=== PATIENT | male | born 1965 | race Native Hawaiian/Other Pacific Islander ===

== ENCOUNTER 2025-06-15 13:56 | Outpatient (AMB) | payer OTHER, SELFPAY ==
[2025-06-15 14:32] VITALS: BMI 41.5
--- NOTE | 2025-06-15 14:32 | A.PHYSOV_ITS ---
Vital Signs 06/15/25 14:32 Height 5 ft 7 in Weight 265 lb BMI 41.5 Intake Visit Reasons: NPV [facility] Ref- lumbar spondylosis Intake Note: Patiewnt is a 59 year old male here for initial office visit. Patient has left thigh pain that travels down to knee. Form Setter Steel Pan Forms Required: No Allergies flu vaccine Allergy (Uncoded 06/15/25 14:34) body rash HPI Comments Details: History of Present Illness The patient is a 59 year old male presenting with left thigh pain. He reports the pain is localized to his left thigh, extending from the hip area downwards, and denies any associated back pain. The pain is described as feeling numb, hot, burning, and itchy, with significant pain on light touch (allodynia). The patient rates his pain as a 10/10 in severity and states it is present all day but is worse at night, which affects his sleep. Symptoms are exacerbated by standing in one position, which causes numbness and pain, prompting him to sit down for relief. Walking does not significantly worsen the pain. He has a history of a herniated disc, and a previous x-ray from May showed disc space narrowing. He currently takes Tylenol and ibuprofen for the pain but has not received other medications, physical therapy, or healthcare economics consultant. I reviewed the referring provider's no prior to consultation. Pain Description - Location: The pain is located in the left thigh, from the hip area down. - Quality: The pain is described as numb, hot, burning, and itchy, with occasional cold sensations. - Severity: The patient rates his current pain as 10/10. - Onset and Timing: The pain is present all day and is worse at night. - Exacerbating factors: Symptoms are worsened by standing in one spot and by light touch to the area. - Relieving factors: Sitting down helps to relieve the pain. - Interference with function: The pain interferes with his sleep. FOR[facility]LY [facility], [facility] Surgical History History of cardiac cath Social History Alcohol intake: current Patient Tobacco Use Status: Former Tobacco user Use of substances other than those prescribed or required for medical reasons: Yes Substance Use Type: Crack/Cocaine, Former Substance User and Opiates Review of Systems Narrative Review of Systems - Neurological: Reports left thigh pain with numbness, burning, itching, and alternating hot and cold sensations. - Musculoskeletal: Denies back pain, but reports hip pain when walking secondary to his thigh pain. - Constitutional: Denies leg weakness. Physical Exam Exam Exam: Physical Exam - Back: No tenderness to palpation over the lumbar spine. - Range of Motion: Lumbar flexion and extension do not provoke radicular symptoms. - Lower Extremities: Reports allodynia in the left thigh with significant pain on light touch. - Neurological: Sensation is altered over the left thigh, described as numb but itchy and sensitive. - Special Tests: Straight leg raise is negative bilaterally. - Motor: Strength is intact with ankle dorsiflexion/plantarflexion and hip flexion. Vital Signs: BMI result Body Mass Index 41.5 Assessment & Plan Assessment & Plan (1) Lumbar radiculopathy: Code(s): M54.16 - Radiculopathy, lumbar region Category: Medical (2) Spondylosis: Code(s): M47.9 - Spondylosis, unspecified Category: Medical Plan Pain Management - Affect: Pain is worse at night, disrupting sleep. - Analgesia: The patient is currently taking only Tylenol and ibuprofen. - Current Pain level: He rates his pain as 10/10. - Activities of Daily Living: Standing for a prolonged period causes increased numbness and pain, requiring him to sit down. - Aberrant Drug Related Behaviors: The patient shows no signs of aberrant behaviors and expressed a desire to avoid narcotic medications. Plan Patient was informed and verbally consented to the use of an ambient scribe for clinic note documentation during this visit. 1. Left Sciatica The patient's left thigh pain is suspected to be neuropathic, likely a radiculopathy originating from a pinched nerve in the lumbar spine, despite the absence of back pain. A previous x-ray showed disc space narrowing, but an MRI is required for a definitive diagnosis of nerve impingement. An MRI of the lumbar spine will be ordered, though it was explained that insurance may require a trial of conservative therapy first. To manage the neuropathic pain, a prescription for gabapentin will be sent to his pharmacy, starting at 100 mg at night, with instructions to titrate up to 200 mg or 300 mg as needed. An order for healthcare economics consultant for 4-6 weeks will be provided for conservative treatment. Discussion Notes I explained to the patient that I believe his left thigh pain is nerve pain originating from a pinched nerve in his back, even though he does not feel back pain. I informed him that an MRI of his back is needed for a clear diagnosis but that his insurance will likely require a trial of 4-6 weeks of conservative therapy, such as healthcare economics consultant, first. I offered to order the MRI due to his severe pain but advised it might not be approved immediately. We discussed starting gabapentin for his nerve pain, explaining that it is not a narcotic, can cause sleepiness, and should help with his pain, particularly at night. I will prescribe a low starting dose of 100 mg at night, which he can increase to two or three pills if needed. I will also provide him with an order for healthcare economics consultant and instructed him to call the office to report on the medication's effectiveness. Patient Instructions - Your left thigh pain is likely nerve pain coming from your back. - Take one gabapentin 100 mg pill at night for the pain. - If one pill is not enough, you can take up to two or three pills at night. - This medication is for nerve pain and may make you sleepy, so it is best to take it at night. - You will receive an order for healthcare economics consultant; please make an appointment with a chiropractor in your community. - An MRI of your back has been recommended, but your insurance may require you to complete several weeks of healthcare economics consultant first. - Please call our office to let us know if the gabapentin is helping your pain. Orders: Referrals Chiropractic Referral M47.9 - Spondylosis, unspecified, M54.16 - Radiculopathy, lumbar region Medications: New gabapentin 100 mg PO BEDTIME 30 caps 0RF 30 days M47.9 - Spondylosis, unspecified, M54.16 - Radiculopathy, lumbar region Coding Level of Care Code Tele New Pt Level 4 (30811) Diagnoses Lumbar radiculopathy M54.16 Spondylosis M47.9
--- OUTSIDE RECORDS SUMMARY | 2025-06-15 18:07 | XMS_ITS | Clinical Summary ---
Author Organization [facility] Prior to 11/28/[address] [place] [address] Care Team Providers Care Ball Maker Name Role Phone Nikkie Loredo DO Primary Care P rovider Allergies Active Allergy Reactions Criticality Noted Date Comments Influenza Vaccines 03/15/2014 Medications Medication Sig Dispensed Refills Start Date End Date Status acetaminophen (TYLENOL) 325 MG tablet Take 650 mg by mouth. 0 10/25/2016 Active hydrochlorothiazide (HYDRODIURIL) tablet 25 mg Take 25 mg by mouth. 0 12/17/2016 Active ibuprofen (ADVIL,MOTRIN) 800 MG tablet Take 800 mg by mouth. 0 11/06/2016 Active lisinopril (PRINIVIL,ZESTRIL) tablet 40 mg Take 40 mg by mouth. 0 12/17/2016 Active omeprazole (PRILOSEC) 20 MG capsule Take 20 mg by mouth. 0 12/17/2016 Active diclofenac (VOLTAREN) 50 MG EC tablet Take 50 mg by mouth 2 (two) times a day. 0 Active cetirizine (ZyrTEC) 10 MG tablet Take 10 mg by mouth daily. 0 Active fluticasone (FLOVENT HFA) 220 MCG/ACT inhaler Inhale 1 puff into the lungs 2 (two) times a day. 0 Active Triamcinolone Acetonide (NASACORT ALLERGY 24HR) 55 MCG/ACT AERO spray or apply 55 mcg inside Nose daily. 0 Active Active Problems Problem Noted Date Diagnosed Date Weight loss 10/11/2021 MGUS (monoclonal gammopathy of unknown significa nce) 09/19/2020 COVID-19 virus infection 09/19/2020 Acute meniscal tear of knee, left, subsequent en counter 08/08/2017 Arthritis of left knee 08/08/2017 Sciatica of left side 08/08/2017 Obstructive sleep apnea 02/25/2017 Overview: Overview: [facility] [place] Date 02/21/2017. SE 51 % SM 55 %. Without PAP: in REM for 4 % of this phase. RDI 94 (AHI 93), Central apneas 1; Obstructive apneas 124; Mixed apneas 3; hypopneas 49; RERAs 3; average oxygen saturation 91% (lowest 51%); PLMs 12. With PAP: in REM for 40 % of this phase. At the optimal pressure of 16 via CPAP; RDI 5.8 (AHI 5.8), Central apneas 2; Obstructive apneas 0; Mixed apneas 0; hypopneas 1; RERAs 0; and, average oxygen saturation was 88%; PLMs ~0. ON oximetry on CPAP. [facility] [place] [place] study. Date 12/13/2017. SE 80 % SM 91 %; spent 28 % of the study in REM. On CPAP @ 11; RDI 5.6 (AHI 5.4), Central apneas 6; Obstructive apneas 7; Mixed apneas 6; hypopneas 9; RERAs 1; and, average oxygen saturation was 92%. For the entire study, PLMs ~6. [facility] Polysomnogram treatment study. Date 06/01/2019. Wt 260#; BMI 40; SE 70 % SM 80 %; spent 24 % of the study in REM. On BiPAP @ /; RDI 2.5 (AHI 2.5), Central apneas 3; Obstructive apneas 0; Mixed apneas 0; hypopneas 1; RERAs 0; and, average oxygen saturation was 94%. For the entire study, PLMs ~1. Prestudy ESS 2; 0/4 RLS symptoms. Chronic pain of left knee 01/30/2017 HTN (hypertension) 09/28/2014 Obesity 09/28/2014 Family History Medical History Relation Name Comments Arthritis Father Heart disease Father Relation Name Status Comments Father Social History Tobacco Use Types Packs/Day Years Used Date Smoking Tobacco: Former Alcohol Use Standard Drinks/Week Comments No 0 (1 standard drink = 0.6 oz pur e alcohol) Sex and Gender Information Value Date Recorded Sex Assigned at Not on file Gender Identity Not on file Sexual Orientation Not on file Job Start Date Occupation Industry Not on file Not on file Not on file Last Filed Vital Signs Vital Sign Reading Time Taken Comments Blood Pressure 124/59 10/11/2021 1:03 PM EDT Pulse 66 10/11/2021 1:03 PM EDT Temperature 35.8 C (96.5 F) 10/11/2021 1:03 PM EDT Respiratory Rate - - Oxygen Saturation 97% 10/11/2021 1:03 PM EDT Inhaled Oxygen Concentration - - Weight 107 kg (236 lb) 10/11/2021 1:03 PM EDT Height 170.2 cm (5' 7 ) 03/21/2020 1:26 PM EDT Body Mass Index 36.96 03/21/2020 1:26 PM EDT Plan of Treatment Health Maintenance Due Date Last Done Comments Hepatitis B Vaccines (1 of 3 - 3-dose series) 1966 Hepatitis C Screening 1966 COVID-19 Vaccine (#1) 11/15/1971 Depression Screening 1978 Preventative Health Evaluation 1984 Shingrix-Zoster Vaccine (1 o f 2) 1985 Pneumococcal Vaccine (2 of 2 - PCV) 07/06/1997 07/06/1996 Colon Cancer Screening (Colonoscopy) 11/15/2011 Influenza Vaccine (#1) 2025 07/06/1996 DTap / Tdap / Td (2 - Td or Tdap) 08/21/2029 08/21/2019, 07/12/1995 RSV Ped < 20 months Aged Out No longe r eligible based on patient's age to complete this topic Care Teams Ball Maker Relationship Specialty Start Date End Date Nikkie Loredo DO PCP - General No Bake Molder 08/26/17
--- OUTSIDE RECORDS SUMMARY | 2025-06-15 18:07 | XMS_ITS | Encounter Summary ---
Author Organization [facility] Address [address] [place] [address] Care Team Providers Care Corncob Pipe Manufacturing Supervisor Name Role Phone Tracy De Leon MD Primary Care Provider [phone] Reason for Visit * Reason Onset Date Comments Results 06/14/2025 Encounter Details Date Type Department Care Team ([facility] st Contact Info) Description 06/14/2025 Telephone Adult Medicine [address] [phone] Tracy De Leon MD [address] [place] [address] Social History Tobacco Use Types Packs/Day Years Used Date Smoking Tobacco: Former Cigarettes 0 20 0 07/01/1984 - 07/01/2004 Smokeless Tobacco: Never Alcohol Use Standard Drinks/Week Comments Yes 0 (1 standard drink = 0.6 oz pur e alcohol) occasional Sex and Gender Information Value Date Recorded Sex Assigned at Not on file Legal Sex Male 12:51 PM EST Gender Identity Not on file Sexual Orientation Not on file documented as of this encounter Progress Notes * Clarice Fowler MA - 06/15/2025 10:06 AM EST Pt notified, will await referral * Clarice Fowler MA - 06/15/2025 10:04 AM EST Images from the original note were not included. X-ray shows worsening degenerative changes. I have placed a referral to physiatry for further evaluation and management. You will be contacted by that office to schedule appointment. Written by CHILANGO Keenan on 05/12/2025 4:55 PM EST * Hannah William - 06/14/2025 4:28 PM EST Inform patient: ANY URGENT OR ABNORMAL RESULTS WIILL RESULT IN A CALL BACK TO THE PATIENT CHAYO. Type of test: :Lumbar Spine Date test was performed: 05/12/2025 Where was the test performed: [facility] Who ordered this test?: Natalia Ellis Is the doctor here today?: yes Can the message wait until the doctor returns?: yes IF PATIENT'S PCP IS NOT IN INSTRUCT PATIENT THAT THEY WILL RECEIVE A CALL BACK WHEN THE PCP IS IN THE OFFICE NEXT. documented in this encounter Plan of Treatment Upcoming Encounters Date Type Department Care Team (Late st Contact Info) Description 11/02/2025 1:30 PM EDT Office Visit Bariatric Surgery - [place] [address] [facility] [address] [place] [phone] Chidi Blount MD [address] [place] [phone] documented as of this encounter Visit Diagnoses Not on filedocumented in this encounter Care Teams Corncob Pipe Manufacturing Supervisor Relationship Specialty Start Date End Date Tracy De Leon MD [address] [place] [phone] PCP - General Internal Medicine 07/06/24 documented as of this encounter
--- OUTSIDE RECORDS SUMMARY | 2025-06-15 18:07 | XMS_ITS | Encounter Summary ---
Author Organization [employer] Address [address] [place] [address] Care Team Providers Care Business Office Coordinator Name Role Phone Tracy De Leon MD Primary Care Provider [phone] Reason for Visit * Reason Onset Date Comments Med Refill 05/19/2025 Wegovy w/titrati on Encounter Details Date Type Department Care Team ([facility] st Contact Info) Description 05/19/2025 Telephone Bariatric Surgery - [place] [address] [facility] [address] [place] [address] Chidi Blount MD [address] [place] [phone] Social History Tobacco Use Types Packs/Day Years [...] on file documented as of this encounter Functional Status * Calculated C-SSRS Risk Score (Lifetime/Recent) Answer Date of Assessment Author No Risk Indicated 05/19/2025 12:35 PM EST Janae Osei RN * Burnett Suicide Severity Rating Scale (Screener/Recent Self-Report) Question Answer Date of Assessment Author 1. Wish to be (Past 1 Month) No 025 12:35 PM EST Janae Osei RN 2. Non-Specific Active Suici mu Thoughts (Past 1 Month) No 05/19/2025 12:35 PM EST Janae Osei RN 6. Suicidal Behavior (Lifetime) No 12:35 PM EST Janae Osei RN documented as of this encounter Progress Notes * Olga Brito - 05/19/2025 9:56 AM EST Patient did well on Wegovy 1 mgs and would like a refill with titration. If appropriate, please send script for Wegovy 1.7 mgs to their pharmacy. The patient does have a follow up in 11/02/2025 documented in this encounter Plan of Treatment Upcoming Encounters Date Type Department Care Team (Late st Contact Info) Description 11/02/2025 1:30 PM EDT Office Visit Bariatric Surgery - [address] [place] [address] Chidi Blount MD [address] [place] [phone] documented as of this encounter Visit Diagnoses Not on filedocumented in this encounter Care Teams Business Office Coordinator Relationship Specialty Start Date End Date Tracy De Leon MD [address] [place] [phone] PCP - General Internal Medicine 07/06/24 documented as of this encounter
--- OUTSIDE RECORDS SUMMARY | 2025-06-15 18:07 | XMS_ITS | Encounter Summary ---
Author Organization [facility] Address [address] [place] [address] Care Team Providers Care Microbiology Instructor Name Role Phone Tracy De Leon MD Primary Care Provider [phone] Reason for Visit * Reason Onset Date Comments Med Refill 06/14/2025 Wegovy Encounter Details Date Type Department Care Team (Late st Contact Info) Description 06/14/2025 Telephone Bariatric Surgery - [place] [address] [facility] [address] [place] [address] Chidi Blount MD [address] [place] [phone] Social History Tobacco Use Types Packs/Day Years [...] on file documented as of this encounter Ordered Prescriptions Prescription Sig Dispense Quantity Refills Last Filled Start Date End Date semaglutide (Wegovy) 2.4 mg/0.75 mL injection pen Inject 2.4 mg under the skin every 7 (seven) days for 28 days. 3 mL 06/14/2025 07/12/2025 documented in this encounter Progress Notes * Kathy Reardon - 06/14/2025 9:53 AM EST Patient did well on Wegovy 1.7 mgs and would like a refill with titration. If appropriate, please send script for Wegovy 2.4 mgs to their pharmacy. The patient does have a follow up in 11/02/2025 documented in this encounter Plan of Treatment Upcoming Encounters Date Type Department Care Team (Late st Contact Info) Description 11/02/2025 1:30 PM EDT Office Visit Bariatric Surgery - [address] [place] [phone] Chidi Blount MD [address] [place] [phone] documented as of this encounter Visit Diagnoses Not on filedocumented in this encounter Discontinued Medications Medication Sig Discontinue Reason Start Date End Da te semaglutide (Wegovy) 1.7 mg/0.75 mL injection pen Inject 1.7 mg under the skin every 7 (seven) days for 28 days. 05/19/2025 06/14/2025 documented as of this encounter Care Teams Microbiology Instructor Relationship Specialty Start Date End Date Tracy De Leon MD [address] [place] [phone] PCP - General Internal Medicine 07/06/24 documented as of this encounter
--- OUTSIDE RECORDS SUMMARY | 2025-06-15 18:07 | XMS_ITS | Patient Health Record ---
Author Organization [facility] [place] Address [address] [place] [phone] Care Team Providers Care Blowing Weasand Name Role Phone Nikkie Loredo Primary Care Provid er Unavailable Jacobo Sampson Unavailable [phone] Allergies Allergen (clinical drug ingredient) Drug/Non Drug Allergy documented on EMR Reaction Allergy Type Onset Date Status Vaccine product containing Influenza virus antigen (medicinal product) Influenza Vaccine (uncoded) rizwana Whitley Allergy Active Reason For Referral No Information Medications Medication SIG (Take, Route, Frequency, Duration) Notes Start Date End Date Status predniSONE 20 MG TOME FRANCISCO TABLETA POR V A ORAL CADA MA PADMINI WITH A MEAL Oral; Duration: 5 Active Nightsplint . . . AFO - L1930; Duration: . Active Albuterol Sulfate HFA 108 (90 Base) MCG/ACT TAKE 2 PUFFS BY MOUTH EVERY 6 HOURS NEEDED FOR WHEEZING Inhalation; Duration: 30 Active Amoxicillin 500 MG TAKE 1 TABLET BY BEKAH TH THREE TIMES A DAY Oral; Duration: 10 Active Lisinopril Active Social History Tobacco Use: Social History Observation Description Date Details (start date - stop date) Never Smoker NA - NA Tobacco Use/Smoking Question Answer Notes Are you a: nonsmoker Additional Findings: Tobacco Non-User Current no n-smoker Alcohol Screen Question Answer Notes Did you have a drink containing alcohol in the p ast year? Yes Points 0 Interpretation Negative Tobacco use other than smoking: Question Answer Notes Are you an other tobacco user? No Problems Problem Type SNOMED Code ICD Code Onset Dates Problem Status W/U Status Risk Notes Problem Plantar fascial fibromatosis (96975104) Plantar fascial fibromatosis (M72.2) Active confirmed Plan Of Treatment No Information Insurance Providers Payer Name Payer Address Payer Phone Subscriber Number Group Number Insured Name Patient Relationship to Insured Coverage Start Date Coverage End Date [facility] [employer] Claims [address] [place] [id number] Vishnu Singletary Self - patient is the insured Medical (General) History Medical History History ICD Code asthma Back pain Hypertension Surgical History Surgery Date(Month/Year) knee surgery-left 2018 Hospitalization History Reason Date(Month/Year) [facility] Left Heel Pain 07/2019
--- OUTSIDE RECORDS SUMMARY | 2025-06-15 18:07 | XMS_ITS | Clinical Summary ---
Author Organization [facility] [address] [place] [address] [place] [address] Phone Care Team Providers Care Mds Coordinator Name Role Phone Tracy De Leon MD Primary Care Provider [phone] Allergies Active Allergy Reactions Criticality Noted Date Comments Influenza Virus Vaccines 03/15/2014 Medications fluticasone HFA (FLOVENT HFA) 220 mcg/actuation inhaler INHALE 2 PUFFS BY MOUTH EVERY 12 HOURS (BULK) 12 g 11 05/22/20 24 Active Arnuity Ellipta 200 mcg/actuation blister with device inhaler INHALE 1 DOSE INTO THE LUNGS DAILY. RINSE MOUTH WITH WATER AND EXPECTORATE AFTER EACH DOSE TO PREVENT ORAL CANDIDIASIS OR FUNGAL INFECTION (BULK) 30 each 5 07/29/19 25 Active atorvastatin (LIPITOR) 40 mg tablet Take 1 tablet (40 mg total) by mouth at bedtime. Active furosemide (LASIX) 20 mg tabletIndicati ons:Stable angina pectoris (CMS/HCC V24),Coronary artery disease due to lipid rich plaque Take 1 tablet (20 mg total) by mouth 1 (one) time each day. 30 each 11 08/13/19 25 2025 Active aspirin 81 mg EC tablet TAKE 1 TABLET BY MOUTH EVERY DAY 90 tablet 3 09/30/19 25 Active fluticasone propion-salmet Farrah (Wixela Inhub) 500-50 mcg/dose diskus inhaler Inhale 1 puff by mouth 2 (two) times a day. Rinse mouth with water after use to reduce aftertaste and incidence of candidiasis. Do not swallow. 1 each 10/23/19 25 2025 Active isosorbide mononitrate (IMDUR) 30 mg 24 hr tablet TAKE 1 TABLET BY MOUTH EVERY DAY IN THE MORNING 90 tablet 3 12/24/19 25 Active cetirizine (ZyrTEC) 10 mg tablet TAKE ONE TABLET BY MOUTH EVERY DAY FOR ALLERGIES (VIAL) 30 tablet 5 01/29/20 25 Active docusate sodium (COLACE) 100 mg capsule TAKE ONE CAPSULE BY MOUTH EVERY DAY NEEDED FOR CONSTIPATION (VIAL) 30 capsule 5 01/29/20 25 Active isosorbide mononitrate (IMDUR) 60 mg 24 hr tablet TAKE 1 TABLET BY MOUTH EVERY MORNING. PT TO TAKE THIS EVERY MORNING ALONG WITH 30 MG TO = 90 MG 90 tablet 3 02/16/20 25 Active albuterol HFA (PROAIR HFA ; PROVENTIL HFA ; VENTOLIN HFA) 90 mcg/actuation inhaler INHALE 2 PUFFS BY MOUTH EVERY 4 HOURS NEEDED FOR COUGH OR WHEEZING (BULK) 8.5 g 5 03/03/20 25 Active omeprazole (PriLOSEC) [address] capsule TAKE 1 CAPSULE BY MOUTH EVERY DAY 90 capsule 1 03/16/20 25 Active albuterol 2.5 mg /3 mL (0.083 %) nebulizer solution INHALE 1 VIAL VIA NEBULIZER EVERY 6 HOURS NEEDED (BULK) 180 mL 3 03/31/20 25 Active lisinopril (PRINIVIL,ZEST RIL) 40 mg tablet TAKE ONE TABLET BY MOUTH EVERY DAY ^1R1 30 tablet 2 04/02/20 25 Active ondansetron (ZOFRAN) 4 mg tabletIndicati ons:Nausea Take 1 tablet (4 mg total) by mouth every 8 (eight) hours if needed for nausea or vomiting for up to 24 doses. 12 tablet 1 05/05/20 25 Active acetaminophen (TYLENOL) 500 mg tablet Take 1 tablet (500 mg total) by mouth every 8 (eight) hours if needed for mild pain. 30 tablet 05/12/20 25 Active metoprolol succinate (TOPROL-XL) 50 mg 24 hr tablet TAKE 1 TABLET BY MOUTH EVERY DAY 90 tablet 3 06/03/20 25 Active semaglutide (Wegovy) 2.4 mg/0.75 mL injection pen Inject 2.4 mg under the skin every 7 (seven) days for 28 days. 3 mL 06/14/20 25 2025 Active metoprolol succinate (TOPROL-XL) 50 mg 24 hr tablet TAKE 1 TABLET BY MOUTH EVERY DAY 90 tablet 3 06/30/20 24 2024 Discontinued semaglutide (Wegovy) 1 mg/0.5 mL injection pen INJECT 1 MG UNDER THE SKIN EVERY 7 (SEVEN) DAYS FOR 28 DAYS. 2 mL 1 04/28/20 25 2024 Discontinued(D ose adjustment) predniSONE (DELTASONE) 20 mg tablet Take 2 tablets (40 mg total) by mouth 1 (one) time each day for 5 days. 10 each 05/12/20 25 2024 semaglutide (Wegovy) 1.7 mg/0.75 mL injection pen Inject 1.7 mg under the skin every 7 (seven) days for 28 days. 3 mL 05/19/20 25 2024 Discontinued Active Problems Problem Noted Date Diagnosed Date Calculus of kidney 12/30/2024 Chronic back pain 12/30/2024 Cocaine dependence 12/30/2024 Depression 12/30/2024 Opioid abuse 12/30/2024 Overview (12/30/2024): did not come in for pill counts w suspicion for diversion Class 2 obesity 12/30/2024 Peripheral edema 08/13/2024 Assessment & Plan (08/13/2024 10:11 AM EST): Patient does have complaints of bilateral lower extremity edema as well as abdominal distention. As outlined above he has gained a significant amount of weight in short. Time. Subsequently, I am going to trial him on a low-dose of Lasix. I have sent this to his pharmacy of choice and of asked him to have a BMP drawn in 1 week to evaluate kidney function and electrolytes. I have also scheduled the patient for surveillance echocardiogram to further evaluate for any valvular abnormalities as well as reduction in LVEF in the setting of significant coronary disease. I have also informed the patient about the importance of performing a daily weight and to reach out to our office should he gain 2 pounds in 1 day or 5 pounds in 5 days accompanied by worsening peripheral edema, abdominal distention and shortness of breath. Prediabetes 04/23/2024 CAD (coronary artery disease) 06/19/2023 Overview (04/23/2024): Last Assessment & Plan: He denies any ongoing anginal symptoms.He will continue on cardioprotective medical therapy of rosuvastatin, isosorbide, aspirin, metoprolol and ticagrelor. He was instructed to call 911 or go to the emergency room should he weeks begin to experience chest pain or pressure lasting greater than 10 minutes that does not resolve with rest. Assessment & Plan (02/25/2025 10:21 AM EDT): Orders: ECG 12 lead Lipid panel with reflex to direct LDL; Future Hemoglobin A1c; Future Assessment & Plan (08/13/2024 10:11 AM EST): Status post cardiac catheterization with disease as outlined above. He was recommended to titrate antianginal medications to help with symptoms prior to patient being evaluated by cardiothoracic surgery as this would be the next step. Again the patient states that he is unable to tolerate amlodipine as this gave him chest pain. He had previously endorsed similar complaints while taking metoprolol. We had a discussion regarding the importance of these medications and that it was unlikely the medicine causing the chest discomfort and was actually his coronary disease. At this time, he was agreeable to continue with aspirin, statin, metoprolol and isosorbide. He does have a prescription for amlodipine which I have asked him not to do get rid of as if he does develop recurrence of chest discomfort this medication will be added as well. Instructed to call 911 or go to the emergency room should the patient begin to experience chest pain or pressure lasting greater than 10 minutes does not resolve with rest. Orders: furosemide (LASIX) 20 mg tablet; Take 1 tablet (20 mg total) by mouth 1 (one) time each day. Basic metabolic panel; Future Transthoracic echocardiogram (TTE) complete with PRN contrast, bubble, strain, and 3D order panel; Future Assessment & Plan (07/10/2024 3:42 PM EST): See careplan for chest pain Chest pain 11/05/2022 Assessment & Plan (07/10/2024 3:42 PM EST): Patient does endorse increase in chest discomfort as well as shortness of breath since his last office visit despite titration and antianginal therapy. Via shared decision making. We have agreed to repeat cardiac catheterization as it has been 1 year since his last cath as outlined above and the patient is having worsening symptoms. At this time he will continue on his current dose of isosorbide and metoprolol. Instructed to call 911 or go to the emergency room should the patient begin to experience chest pain or pressure lasting greater than 10 minutes does not resolve with rest. Risk of cardiac catheterization explained to the patient including risk for damage to access site resulting in pseudoaneurysm requiring vascular procedure, risk for bleeding, kidney injury, stroke, NH, ventricular arrhythmia, pericardial effusion and . The patient does understand these risks and agrees to proceed. Weight loss 10/11/2021 COVID-19 virus infection 09/19/2020 MGUS (monoclonal gammopathy of unknown significa nce) 09/19/2020 Fatty liver 07/26/2020 Overview (04/23/2024): Noted incidentally on CT of abdomen during admission at [facility] on 07/19/2020 COVID-19 virus infection 07/26/2020 Paraproteinemia 05/05/2019 Acute meniscal tear of knee, left, subsequent en counter 08/08/2017 Arthritis of left knee 08/08/2017 Sciatica of left side 08/08/2017 Dyslipidemia 03/08/2017 Overview (04/23/2024): Last Assessment & Plan: Patient continues to endorse perceived myalgias since being on statin therapy. At this time he will continue on his current dose of statin and be mindful of his dietary fat intake. Will update fasting lipid profile to further evaluate where his LDL is since being on statin therapy. We will consider PCSK9 inhibitor per the patient's request. Assessment & Plan (02/25/2025 10:52 AM EDT): Assessment & Plan (08/13/2024 10:11 AM EST): He will continue on her current dose of Lipitor and be more mindful of his dietary fat intake. Goal LDL less than 70 however ideally closer to 55 in the setting of significant coronary artery disease. Can consider updating fasting lipid profile prior to next in office visit unless already performed by his PCP. Assessment & Plan (07/10/2024 3:42 PM EST): Continue current statin therapy. Last LDL 60. This is at goal of <70. Known medical problems 02/25/2017 Obstructive sleep apnea 02/25/2017 Overview (04/23/2024): [facility] Split Night Polysomnogram Date 02/21/2017. SE 51 [...] 88%; PLMs ~0. ON oximetry on CPAP. [facility] Polysomnogram treatment study. Date 12/13/2017. SE 80 % SM 91 %; spent 28 % of the study in REM. On CPAP @ 11; RDI 5.6 (AHI 5.4), Central apneas 6; Obstructive apneas 7; Mixed apneas 6; hypopneas 9; RERAs 1; and, average oxygen saturation was 92%. For the entire study, PLMs ~6. [facility] Polysomnogram treatment study. Date 06/01/2019. Wt 260#; BMI 40; SE 70 % SM 80 %; spent 24 % of the study in REM. On BiPAP @ ; RDI 2.5 (AHI 2.5), Central apneas 3; Obstructive apneas 0; Mixed apneas 0; hypopneas 1; RERAs 0; and, average oxygen saturation was 94%. For the entire study, PLMs ~1. Prestudy ESS 2; 0/4 RLS symptoms. Obstructive sleep apnea 02/25/2017 Overview (12/30/2024): [facility] Split Night Polysomnogram Date 02/21/2017. SE 51 [...] 88%; PLMs ~0. ON oximetry on CPAP. [facility] Polysomnogram treatment study. Date 12/13/2017. SE 80 % SM 91 %; spent 28 % of the study in REM. On CPAP @ 11; RDI 5.6 (AHI 5.4), Central apneas 6; Obstructive apneas 7; Mixed apneas 6; hypopneas 9; RERAs 1; and, average oxygen saturation was 92%. For the entire study, PLMs ~6. [facility] Polysomnogram treatment study. Date 06/01/2019. Wt 260#; BMI 40; SE 70 % SM 80 %; spent 24 % of the study in REM. On BiPAP @ ; RDI 2.5 (AHI 2.5), Central apneas 3; Obstructive apneas 0; Mixed apneas 0; hypopneas 1; RERAs 0; and, average oxygen saturation was 94%. For the entire study, PLMs ~1. Prestudy ESS 2; 0/4 RLS symptoms. Chronic pain of left knee 01/30/2017 Asthma 10/13/2015 Plantar fasciitis, right 10/03/2015 HTN (hypertension) 09/28/2014 Overview (04/23/2024): Last Assessment & Plan: Well-controlled during today's exam with a reading of 118/72. I have made no changes to his medications. Educated on the importance of diet lifestyle to help further assist in reducing blood pressure. The patient was encouraged to follow low-salt low-fat diet, make purposeful strides towards weight loss, and engage in routine aerobic exercise as tolerated. Assessment & Plan (02/25/2025 10:52 AM EDT): Assessment & Plan (08/13/2024 10:11 AM EST): Acceptable during today's exam with a reading of 130/76. I have asked him to continue on his current dose of lisinopril. Educated on the importance of diet lifestyle to help further assist in reducing blood pressure. The patient was encouraged to follow low-salt low-fat diet, make purposeful strides towards weight loss, and engage in routine aerobic exercise as tolerated. Assessment & Plan (07/10/2024 3:42 PM EST): Well-controlled during today's exam with a reading of 124/80. I have made no changes to his medications. Educated on the importance of diet lifestyle to help further assist in reducing blood pressure. The patient was encouraged to follow low-salt low-fat diet, make purposeful strides towards weight loss, and engage in routine aerobic exercise as tolerated. HTN (hypertension) 09/28/2014 Obesity 09/28/2014 Encounters Date Type Department Care Team Description 06/14/2025 Telephone Adult Medicine [address] [phone] Tracy De Leon MD 06/14/2025 Telephone Bariatric Surgery [address] [phone] Chidi Blount MD 05/26/2025 Telephone Adult Medicine [address] [phone] Tracy De Leon MD 05/19/2025 3:33 PM EST - 05/19/2025 7:43 PM EST Emergency [facility] [address] [place] [phone] Jermaine Moulton MD Epigastric pain (Primary Dx) Discharge Disposition: Home or Self Care 05/19/2025 [address] [facility] [address] [phone] Chidi Blount MD 05/12/2025 12:52 PM EST - 05/12/2025 11:59 PM EST Hospital Encounter [address] [phone] Left thigh pain; Chronic low back pain with left-sided sciatica, unspecified back pain laterality Discharge Disposition: Home or Self Care 05/12/2025 12:30 PM EST Office Visit Adult [address] [phone] Natalia Ellis PA Left thigh pain (Primary Dx); Chronic low back pain with left-sided sciatica, unspecified back pain laterality 05/12/2025 Results Follow-Up [address] [phone] Natalia Ellis PA 05/12/2025 Telephone Adult [address] [phone] Tracy De Leon MD 05/05/2025 1:00 PM EST Office Visit Bariatric [address] [phone] Chidi Blount MD Class 3 severe obesity due to excess calories with body mass index (BMI) of 40.0 to 44.9 in adult, unspecified whether serious comorbidity present (CMS/HCC V24, CMS/HCC V28) (Primary Dx); Nausea 04/19/2025 Telephone Bariatric Surgery [address] [phone] Chidi Blount MD 04/02/2025 1:20 PM EDT - 04/02/2025 4:09 PM EDT Emergency [facility] Emergency [address] [place] [phone] Leandro Almaguer MD Acute left ankle pain (Primary Dx) Discharge Disposition: Home or Self Care 03/26/2025 Telephone Bariatric Surgery - [address] [place] [address] Chidi Blount MD 03/22/[address] [facility] [address] [facility] [address] [place] [address] Dat Multani [place] from Last 3 Months Immunizations Immunization Administration Dates Next Due PPD Test 04/15/2019 Tdap Tetanus diptheria acell ular pertussis (Boostrix; Adacel) 7yo and older 08/21/2019 Surgical History Surgery Date Site/Laterality Comments OTHER SURGICAL HISTORY PROCEDURE: DENIES PREVIOUS SURGERY CARDIAC CATHETERIZATION DONE ON 07/09/2024 AT [facility] INDICATIONS:Chest pain and Abnormal stress perfusion study CARDIAC CATHETERIZATION Done on 07/27/2024 at [facility] indication:Chest pain Medical History Medical History Date Comments HTN (hypertension) DX:HTN (hyper tension) Obesity DX:Obesity Plantar fasciitis, right 10/03/2015 DX:Plan tar fasciitis, right Peroneal tendonitis 10/03/2015 DX:Peroneal tendonitis WM (obstructive sleep apnea) DX :WM (obstructive sleep apnea) Asthma 10/13/2015 DX:Asthma Dyslipidemia 03/08/2017 DX:Dyslipidemia Elevated fasting glucose 03/08/2017 DX:Elev ated fasting glucose Prediabetes DX:Prediabetes Family history of cardiovasc ular disease DX:Family history of cardiov ascular disease Family History Medical History Relation Name Comments Coronary artery disease Father Hypertension Mother dm2, cad Relation Name Status Comments Father Mother Social History Tobacco Use Types Packs/Day Years Used Date Smoking Tobacco: Former Cigarettes 0 20 0 07/01/1984 - 07/01/2004 Smokeless Tobacco: Never Tobacco Cessation:Counseling Given: Not Answered Alcohol Use Standard Drinks/Week Comments Yes 0 (1 standard drink = 0.6 oz pur e alcohol) occasional Sex and Gender Information Value Date Recorded Sex Assigned at Not on file Legal Sex Male 12:51 PM EST Gender Identity Not on file Sexual Orientation Not on file Last Filed Vital Signs Vital Sign Reading Time Taken Comments Blood Pressure 104/76 05/19/2025 6:35 PM EST Pulse 85 05/19/2025 6:35 PM EST Temperature 36.8 C (98.2 F) 05/19/2025 6:35 PM EST Respiratory Rate 17 05/19/2025 6:35 PM EST Oxygen Saturation 96% 05/19/2025 6:35 PM EST Inhaled Oxygen Concentration - - Weight 121 kg (267 lb) 05/19/2025 12:35 PM EST Height 173.7 cm (5' 8.4 ) 05/19/2025 12:35 PM ES T Body Mass Index 40.12 05/19/2025 12:35 PM EST Plan of Treatment Upcoming Encounters Date Type Department Care Team (Late st Contact Info) Description 11/02/2025 1:30 PM EDT Office Visit Bariatric Surgery - [place] [address] [place] [address] Chidi Blount MD [address] [place] [phone] Health Maintenance Due Date Last Done Comments COVID-19 Vaccine (#1) 11/15/1971 Hepatitis A Vaccines (1 of 2 - Risk 2-dose series) 1985 Zoster Vaccines (1 of 2) 1985 Pneumococcal Vaccine: 50+ Years (2 of 2 - PCV) 07/06/1997 07/06/1996 RSV Immunization Adult Patients (1 - Risk 50-74 years 1-dose series) 2016 HIV Screening 06/07/2022 Hepatitis C Screening 06/07/2022 Medicare Annual Wellness Visit 06/07/2022 Social Influencers of Health Screening 06/07/2022 Depression Screening 07/01/2024 Influenza Vaccine (#1) 2025 07/06/1996 Hypertension/CHF/CAD Annual BMP Blood Test 05/19/2026 05/19/2025, 03/11/2025, 08/21/2024, Additional history exists Colorectal Cancer Screening: Colonoscopy 04/06/2029 04/06/2019 DTaP,Tdap,and Td Vaccines (4 - Td or Tdap) 08/21/2029 08/21/2019, 05/31/2010, 07/12/1995 Cholesterol Screening (Lipid Panel) 02/25/2030 02/25/2025, 01/10/2024, 01/10/2024 Hepatitis B Vaccines Completed 06/29/2013, 01/27/2013, 12/30/2012 HIB Vaccines Aged Out No longer eligi ble based on patient's age to complete this topic HPV Vaccines Aged Out No longer eligi ble based on patient's age to complete this topic IPV Vaccines Aged Out No longer eligi ble based on patient's age to complete this topic MMR Vaccines Aged Out No longer eligi ble based on patient's age to complete this topic Meningococcal ACWY Vaccine Aged Out N o longer eligible based on patient's age to complete this topic Meningococcal B Vaccine Aged Out No l onger eligible based on patient's age to complete this topic RSV Immunization Patients Under 20 months Aged Out No longer eligible based on patient's age to complete this topic Varicella Vaccines Aged Out No longer eligible based on patient's age to complete this topic Procedures Procedure Name Priority Date/Time Associated Diagnosis Comments CT ABDOMEN PELVIS W CONTRAST STAT 05/19/2025 6:07 PM EST XR CHEST 1 VIEW STAT 05/19/2025 4:40 PM EST TROPONIN I HIGH SENSITIVITY STAT 05/19/2025 3:46 PM EST ECG 12-LEAD STAT 05/19/2025 1:03 PM EST CBC WITH AUTO DIFFERENTIAL STAT 05/19/2025 1:00 PM EST LIPASE STAT 05/19/2025 1:00 PM EST COMPREHENSIVE METABOLIC PANEL STAT 05/19/2025 1:00 PM EST CBC AND DIFFERENTIAL STAT 05/19/2025 1:00 PM EST XR LUMBAR SPINE 4+ VIEWS Routine 05/12/2025 1:00 PM EST Left thigh pain Chronic low back pain with left-sided sciatica, unspecified back pain laterality ED SPLINT APPLICATION Routine 04/02/2025 3:29 PM EDT XR ANKLE 3+ VIEWS LEFT STAT 2:16 PM EDT URIC ACID STAT 04/02/2025 2:08 PM EDT LIPID PANEL WITH REFLEX TO DIRECT LDL Routine 02/25/2025 10:19 AM EDT Coronary artery disease due to lipid rich plaque HM COLONOSCOPY Routine 04/06/2019 from Last 3 Months or Most Recently Relevant to Health Maintenance Results * CT Abdomen Pelvis w Contrast (05/19/2025 6:07 PM EST) Anatomical Region Laterality Modality Body Computed Tomogra phy 05/19/2025 6:45 PM EST Impressions 05/19/2025 6:45 PM EST 1. No acute findings. 2. Diverticulosis. 3. Hepatic steatosis. This document has been electronically signed by: Heidi Hahn MD on 05/19/2025 18:45:48 Narrative 05/19/2025 6:45 PM EST INDICATION: Abdominal pain, acute, no prior medical history CT abdomen and pelvis with contrast Comparison: CT - CT ABDOMEN PELVIS W CONTRAST - 03/12/25 01:02 EDT Findings: No consolidation or effusion. Bilateral basilar dependent atelectasis. Unremarkable gallbladder. No biliary ductal dilatation. Low-attenuation of liver parenchyma consistent with steatosis. The spleen, pancreas and adrenal glands are unremarkable. Left renal very small cortical hypodense lesions which are too small to be fully characterized. Normal enhancement of bilateral kidneys with no ureteral stones and no hydronephrosis or hydroureter. No perinephric stranding. Very small hiatal hernia. No bowel obstruction, pneumoperitoneum, or pneumatosis. Descending and sigmoid colon diverticulosis with no CT evidence of acute diverticulitis. No free fluid or loculated fluid collection. Pelvic contents unremarkable. Normal appendix. No aneurysm of the abdominal aorta. Minimal atherosclerotic vascular disease. No acute fracture. Degenerative changes of the spine. Procedure Note Heidi Hahn MD - 05/19/2025 INDICATION: Abdominal pain, acute, no prior medical history CT abdomen and pelvis with contrast Comparison: CT - CT ABDOMEN PELVIS W CONTRAST - 03/12/25 01:02 EDT Findings: No consolidation or effusion. Bilateral basilar dependent atelectasis. Unremarkable gallbladder. No biliary ductal dilatation. Low-attenuation of liver parenchyma consistent with steatosis. The spleen, pancreas and adrenal glands are unremarkable. Left renal very small cortical hypodense lesions which are too small francisco fully characterized. Normal enhancement of bilateral kidneys with no ureteral stones and no hydronephrosis or hydroureter. No perinephric stranding. Very small hiatal hernia. No bowel obstruction, pneumoperitoneum, or pneumatosis. Descending and sigmoid colon diverticulosis with no CT evidence of acute diverticulitis. No free fluid or loculated fluid collection. Pelvic contents unremarkable. Normal appendix. No aneurysm of the abdominal aorta. Minimal atherosclerotic vascular disease. No acute fracture. Degenerative changes of the spine. IMPRESSION: 1. No acute findings. 2. Diverticulosis. 3. Hepatic steatosis. This document has been electronically signed by: Heidi Hahn MD on 05/19/2025 18:45:48 Jermaine Moulton MD IMG CT PROCEDURES Final Re sult * XR Chest 1 View (05/19/2025 4:40 PM EST) Anatomical Region Laterality Modality Body Radiographic Cristiana ging 05/19/2025 5:02 PM EST Impressions 05/19/2025 5:03 PM EST FINDINGS/IMPRESSION: Normal heart size and pulmonary vascularity. Lungs are clear and costophrenic angles are sharp. No acute osseous abnormality. -------- FINAL REPORT -------- Dictated By: Darrick Medrano Dictated Date: 05/19/2025 17:02 ET Assigned Physician: Darrick Medrano Reviewed and Electronically Signed By: Darrick Medrano Signed Date: 05/19/2025 17:03 ET Workstation ID: [id number] Transcribed By: Self Edit Transcribed Date: 05/19/2025 17:02 ET Narrative 05/19/2025 5:03 PM EST XR CHEST 1 VIEW INDICATION: Abdominal pain, acute, no prior medical history TECHNIQUE: XR CHEST 1 VIEW COMPARISON: None Procedure Note Darrick Medrano MD - 05/19/2025 XR CHEST 1 VIEW INDICATION: Abdominal pain, acute, no prior medical history TECHNIQUE: XR CHEST 1 VIEW COMPARISON: None IMPRESSION: FINDINGS/IMPRESSION: Normal heart size and pulmonary vascularity. Lungsare clear and costophrenic angles are sharp. No acute osseousabnormality. -------- FINAL REPORT -------- Dictated By: Darrick Medrano Dictated Date: 05/19/2025 17:02 ET Assigned Physician: Darrick Medrano Reviewed and Electronically Signed By: Darrick Medrano Signed Date: 05/19/2025 17:03 ET Workstation ID: [id number] Transcribed By: Self Edit Transcribed Date: 05/19/2025 17:02 ET us Jermaine Moulton MD IMG XR PROCEDURES Final Re sult * Troponin I High Sensitivity (05/19/2025 3:46 PM EST) [facility] High Sensitivity Troponin I <3 <=53 ng/L 05/19/2025 4:49 PM EST [facility] Blood Venous blood specimen / Unknown Venipuncture / Unknown 05/19/2025 3:46 PM EST 05/19/2025 4:22 PM EST Jermaine Moulton MD LAB BLOOD ORDERABLES Final Result [facility] [address] [place] [address], * ECG 12 lead (05/19/2025 1:03 PM EST) [facility] Ventricular Rate ECG 85 BPM GEMUSE Atrial Rate 85 BPM GEMUSE P-R Interval 154 ms GEMUSE QRS Duration 82 ms GEMUSE Q-T Interval 378 ms GEMUSE QTc 449 ms GEMUSE P Wave [place] 49 degrees GEMUSE R [place] 2 degrees GEMUSE T [place] 75 degrees GEMUSE ECG Interpretation Normal sinus rhythm Low voltage QRS Abnormal ECG When compared with ECG of 12-MAR-2025 03:21, No significant change was found Confirmed by Alfonso AKERS JAMES ([id number]) on 05/19/2025 3:28:41 PM GEMUSE 05/19/2025 1:03 PM EST 05/19/2025 3:28 PM EST us Pattie Gorman MD ECG ORDERABLES Final Result GEMUSE * (ABNORMAL) CBC auto differential (05/19/2025 1:00 PM EST) [facility] Signature WBC 10.7 4.8 - 10.8 K/mcL LAB HEMETOLOGY METHOD 05/19/2025 1:55 PM [facility] RBC 4.90 4.50 - 5.50 M/mcL LAB HEMETOLOGY METHOD 05/19/2025 1:55 PM [facility] Hemoglobin 13.6 13.5 - 17.5 g/dL LAB HEMETOLOGY METHOD 05/19/2025 1:55 PM [facility] Hematocrit 41.1(L) 42.0 - 54.0 % LAB HEMETOLOGY METHOD 05/19/2025 1:55 PM [facility] MCV 84.0 79.0 - 98.0 FL LAB HEMETOLOGY METHOD 05/19/2025 1:55 PM [facility] MCH 27.8 27.0 - 32.0 pcg LAB HEMETOLOGY METHOD 05/19/2025 1:55 PM [facility] MCHC 33.1 32.0 - 37.0 g/dL LAB HEMETOLOGY METHOD 05/19/2025 1:55 PM [facility] RDW 15.4(H) 11.0 - 15.0 % LAB HEMETOLOGY METHOD 05/19/2025 1:55 PM [facility] Platelets 233 130 - 400 K/mcL LAB HEMETOLOGY METHOD 05/19/2025 1:55 PM [facility] MPV 10.2 7.0 - 11.0 FL LAB HEMETOLOGY METHOD 05/19/2025 1:55 PM [facility] NRBC 0.0 <1.0 % LAB HEMETOLOGY METHOD 05/19/2025 1:55 PM [facility] NRBC Absolute 0.00 <0.10 K/mcL LAB HEMETOLOGY METHOD 05/19/2025 1:55 PM [facility] Neutrophils Relative 63.1 % LAB HEMETOLOGY METHOD 05/19/2025 1:55 PM [facility] Lymphocytes Relative 26.6 % LAB HEMETOLOGY METHOD 05/19/2025 1:55 PM [facility] Monocytes Relative 7.4 % LAB HEMETOLOGY METHOD 05/19/2025 1:55 PM [facility] Eosinophils Relative 2.1 % LAB HEMETOLOGY METHOD 05/19/2025 1:55 PM [facility] Basophils Relative 0.3 % LAB HEMETOLOGY METHOD 05/19/2025 1:55 PM [facility] Immature Granulocytes Relative 0.5 % LAB HEMETOLOGY METHOD 05/19/2025 1:55 PM [facility] Neutrophils Absolute 6.74 1.50 - 7.00 K/mcL LAB HEMETOLOGY METHOD 05/19/2025 1:55 PM [facility] Lymphocytes Absolute 2.84 1.00 - 5.00 K/mcL LAB HEMETOLOGY METHOD 05/19/2025 1:55 PM [facility] Monocytes Absolute 0.79 0.20 - 1.00 K/mcL LAB HEMETOLOGY METHOD 05/19/2025 1:55 PM [facility] Eosinophils Absolute 0.22 0.00 - 0.50 K/mcL LAB HEMETOLOGY METHOD 05/19/2025 1:55 PM [facility] Basophils Absolute 0.03 0.00 - 0.20 K/mcL LAB HEMETOLOGY METHOD 05/19/2025 1:55 PM [facility] Immature Granulocytes Absolute 0.05(H) 0.00 - 0.03 K/mcL LAB HEMETOLOGY METHOD 05/19/2025 1:55 PM EST [facility] Blood Venous blood specimen / Unknown Venipuncture / Unknown 05/19/2025 1:00 PM EST 05/19/2025 1:48 PM EST us Pattie Gorman MD LAB BLOOD ORDERABLES Final Resul t Performing Organization Address [facility]/ZIP Co de Phone Number [facility] [address] [place] [address], [place] [phone] * Lipase (05/19/2025 1:00 PM EST) Pathologist [facility] Lipase 48 12 - 53 unit/L 05/19/2025 2:24 PM EST [facility] Blood Venous blood specimen / Unknown Venipuncture / Unknown 05/19/2025 1:00 PM EST 05/19/2025 1:48 PM EST us Pattie Gorman MD LAB BLOOD ORDERABLES Final Resul t Performing Organization Address [facility] de Phone Number [facility] [address] [place] [address], [place] [phone] * Comprehensive metabolic panel (05/19/2025 1:00 PM EST) Pathologist [facility] Sodium 138 133 - 145 mmol/L 05/19/2025 5:52 PM EST [facility] Potassium 4.2 3.5 - 5.5 mmol/L 05/19/2025 5:52 PM EST [facility] Chloride 102 96 - 110 mmol/L 05/19/2025 5:52 PM EST [facility] CO2 25 21 - 32 mmol/L 05/19/2025 5:52 PM EST [facility] Anion Gap 11 3 - 11 05/19/2025 5:52 PM EST [facility] Glucose 99 70 - 100 mg/dL 05/19/2025 5:52 PM [facility] BUN 21 5 - 25 mg/dL 05/19/2025 5:52 PM [facility] Creatinine 1.04 0.70 - 1.30 mg/dL 05/19/2025 5:52 PM [facility] eGFR 83 >=60 mL/min/1. 73m2 05/19/2025 5:52 PM [facility] Comment:Calculation based on the Chronic Kidney Disease Epidemiology Collaboration (CKD-EPI) equation refit without adjustment for race. BUN/Creatinine Ratio 20.2 05/19/2025 5:52 PM [facility] Calcium 9.2 8.5 - 10.5 mg/dL 05/19/2025 5:52 PM [facility] AST (SGOT) 14 10 - 42 unit/L 05/19/2025 5:52 PM [facility] ALT (SGPT) 20 10 - 60 unit/L 05/19/2025 5:52 PM [facility] Alkaline Phosphatase 87 42 - 121 unit/L 05/19/2025 5:52 PM [facility] Total Protein 7.2 6.0 - 8.0 g/dL 05/19/2025 5:52 PM [facility] Albumin 4.2 3.2 - 5.0 g/dL 05/19/2025 5:52 PM [facility] Total Bilirubin 0.5 0.0 - 1.4 mg/dL 05/19/2025 5:52 PM [facility] Blood Venous blood specimen / Unknown Venipuncture / Unknown 05/19/2025 1:00 PM EST 05/19/2025 1:48 PM EST us Pattie Gorman MD LAB BLOOD ORDERABLES Final Resul t [facility] [address] [place] [address], * XR Lumbar Spine 4+ Views (05/12/2025 1:00 PM EST) Anatomical Region Laterality Modality Spine, L-spine Radiographic Cristiana ging 05/12/2025 2:39 PM EST Impressions 05/12/2025 2:41 PM EST Spondylosis. Progression of spondylosis since the previous study. -------- FINAL REPORT -------- Dictated By: Danae Patterson Dictated Date: 05/12/2025 14:39 ET Assigned Physician: Danae Patterson Reviewed and Electronically Signed By: Danae Patterson Signed Date: 05/12/2025 14:41 ET Workstation ID: [id number] Transcribed By: Self Edit Transcribed Date: 05/12/2025 14:39 ET Narrative 05/12/2025 2:41 PM EST LUMBOSACRAL SPINE, 4 VIEWS INCLUDING OBLIQUES HISTORY: Chronic low back pain with acute pain of left thigh. Prior: Lumbar spine 12/16/2019. FINDINGS: There is normal alignment of the lumbosacral spine. No fractures are seen. Space narrowing at several levels. There is severe disc space narrowing and endplate spurring at L5-S1, not significantly changed. There are bridging osteophytes of the visualized lower thoracic and upper lumbar spine, and these have progressed. There is facet arthropathy of the lower lumbar spine. Procedure Note Danae Patterson MD - 05/12/2025 LUMBOSACRAL SPINE, 4 VIEWS INCLUDING OBLIQUES HISTORY: Chronic low back pain with acute pain of left thigh. Prior: Lumbar spine 12/16/2019. FINDINGS: There is normal alignment of the lumbosacral spine. No fractures areseen. Space narrowing at several levels. There is severe disc space narrowingand endplate spurring at L5-S1, not significantly changed. There arebridging osteophytes of the visualized lower thoracic and upper lumbarspine, and these have progressed. There is facet arthropathy of the lower lumbar spine. IMPRESSION: Spondylosis. Progression of spondylosis since the previous study. -------- FINAL REPORT -------- Dictated By: Danae Patterson Dictated Date: 05/12/2025 14:39 ET Assigned Physician: Danae Patterson Reviewed and Electronically Signed By: Danae Patterson Signed Date: 05/12/2025 14:41 ET Workstation ID: [id number] Transcribed By: Self Edit Transcribed Date: 05/12/2025 14:39 ET Natalia KEE IMG XR PROCEDURES Final Result * Splint Application (04/02/2025 3:29 PM EDT) Leandro Amor MD - 04/02/2025 3:29 PM EDT Leandro Almaguer MD 04/02/2025 3:30 PM Splint Application Date/Time: 04/02/2025 3:29 PM Performed by: Leandro Almaguer MD Authorized by: Leandro Almaguer MD Consent: Consent obtained: Verbal Consent given by: Patient Alternatives discussed: No treatment, alternative treatment and referral [place] protocol: Patient identity confirmed: Verbally with patient Pre-procedure details: Distal neurologic exam: Normal Distal perfusion: distal pulses strong and brisk capillary refill Procedure details: Strapping: yes Supplies: Elastic bandage Splint applied and adjusted personally by me: Elastic bandage applied by nursing staff and readjusted by me.. Post-procedure details: Distal neurologic exam: Normal Distal perfusion: distal pulses strong Procedure completion: Tolerated well, no immediate complications Post-procedure imaging: not applicable Result [facility] Leandro Almaguer MD IN CLINIC/BEDSIDE ORDERABLES F inal Result * XR Ankle 3+ Views Left (04/02/2025 2:16 PM EDT) Anatomical Region Laterality Modality Lower Extremities, Ankle Left Radiogr aphic Imaging 04/02/2025 3:01 PM EDT Impressions 04/02/2025 3:02 PM EDT FINDINGS/IMPRESSION: Three views of the ankle demonstrating no evidence for an acute fracture. Normal alignment. Mild soft tissue swelling. Small plantar calcaneal spur. -------- FINAL REPORT -------- Dictated By: Darrick Medrano Dictated Date: 04/02/2025 15:01 ET Assigned Physician: Darrick Medrano Reviewed and Electronically Signed By: Darrick Medrano Signed Date: 04/02/2025 15:02 ET Workstation ID: [id number] Transcribed By: Self Edit Transcribed Date: 04/02/2025 15:01 ET Narrative 04/02/2025 3:02 PM EDT XR ANKLE 3+ VIEWS LEFT INDICATION: medial malleolus pain TECHNIQUE: XR ANKLE 3+ VIEWS LEFT COMPARISON: No priors available. Procedure Note Darrick Medrano MD - 04/02/2025 XR ANKLE 3+ VIEWS LEFT INDICATION: medial malleolus pain TECHNIQUE: XR ANKLE 3+ VIEWS LEFT COMPARISON: No priors available. IMPRESSION: FINDINGS/IMPRESSION: Three views of the ankle demonstrating no evidencefor an acute fracture. Normal alignment. Mild soft tissue swelling.Small plantar calcaneal spur. -------- FINAL REPORT -------- Dictated By: Darrick Medrano Dictated Date: 04/02/2025 15:01 ET Assigned Physician: Darrick Medrano Reviewed and Electronically Signed By: Darrick Medrano Signed Date: 04/02/2025 15:02 ET Workstation ID: [id number] Transcribed By: Self Edit Transcribed Date: 04/02/2025 15:01 ET us Leandro Almaguer MD IMG XR PROCEDURES Final Result * Uric acid (04/02/2025 2:08 PM EDT) Uric Acid 9.0 3.7 - 9.2 mg/dL LAB CHEMISTRY METHOD 04/02/2025 2:59 PM EDT [facility] Blood Venous blood specimen / Unknown Venipuncture / Unknown 04/02/2025 2:08 PM EDT 04/02/2025 2:23 PM EDT us Leandro Almaguer MD LAB BLOOD ORDERABLES Final Res ult [facility] [address] [place] [address], [place] [phone] * (ABNORMAL) Lipid panel with reflex to direct LDL (02/25/2025 10:19 AM EDT) Cholesterol 127 0 - 200 mg/dL LAB CHEMISTRY METHOD 02/25/2025 3:06 PM EDT [facility] Triglycerides 155(H) 0 - 150 mg/dL LAB CHEMISTRY METHOD 02/25/2025 3:06 PM EDT [facility] HDL 32(L) >=40 mg/dL LAB CHEMISTRY METHOD 02/25/2025 3:06 PM EDT [facility] LDL Calculated 64 0 - 100 mg/dL LAB CHEMISTRY METHOD 02/25/2025 3:06 PM EDT [facility] Comment:Estimated LDL Calcul ated using equation: Total cholesterol - HDL cholesterol - (Triglycerides/5) VLDL Cholesterol Lc 31 mg/dL LAB CHEMISTRY METHOD 02/25/2025 3:06 PM EDT [facility] Non HDL Chol. (LDL+VLDL) 95 <145 mg/dL LAB CHEMISTRY METHOD 02/25/2025 3:06 PM EDT [facility] Chol/HDL Ratio 4.0 0.0 - 4.4 LAB CHEMISTRY METHOD 02/25/2025 3:06 PM T [facility] Blood Venous blood specimen / Unknown Venipuncture / Unknown 02/25/2025 10:19 AM EDT 02/25/2025 10:19 AM EDT Orestes Mobley MD LAB BLOOD ORDERABLES Julia l Result [facility] [address] [place] [address], [place] [phone] * Hm Colonoscopy (04/06/2019) HM Colonoscopy no interpretation , abstracted Anatomical Region Laterality Modality Other Historical Provider HEALTH MAINTENANCE Final Result from Last 3 Months or Most Recently Relevant to Health Maintenance Insurance [employer] MED[employer] Member Subscriber Plan / Payer (Ef fective 2018-Present) Name:ALIE SINGLETARYO Relation to Subscriber:Self Name:Frandy Singletaryardo Payer ID:[id number] Group ID:[id number] Type:Not on file Address: [place] [address] [address] [id number] Care Teams Mds Coordinator Relationship Specialty Start Date End Date Tracy De Leon MD [address] [place] [phone] PCP - General Internal Medicine 07/06/24
--- OUTSIDE RECORDS SUMMARY | 2025-06-15 18:07 | XMS_ITS | Encounter Summary ---
Author Organization [facility] Address [address] [place] [address] Care Team Providers Care Boarder Steam Name Role Phone Tracy De Leon MD Primary Care Provider [phone] Reason for Referral * Consultation (Routine) - Closed Specialty Diagnoses / Procedures Referred By Contac t Referred To Contact Physical Medicine and Rehabilitation Diagnoses Lumbar spondylosis Natalia Ellis PA [address] [place] [address] Phone: tel: fax: Alen Galan DO [address] [facility] [address] [place] [address] Phone: tel:[phone] fax:[phone] Referral ID Status Reason Start Date Expiration Date V isits Requested Visits Authorized [id number] Closed Specialty Services Required 05/12/2025 05/12/2026 1 1 Encounter Details Date Type Department Care Team (Late st Contact Info) Description 05/12/2025 Results Follow-Up Adult Medicine [address] [phone] Natalia Ellis PA [address] [place] [address] Social History Tobacco Use Types Packs/Day Years [...] on file documented as of this encounter Plan of Treatment Upcoming Encounters Date Type Department Care Team ([facility] st Contact Info) Description 11/02/2025 1:30 PM EDT Office Visit Bariatric Surgery - [address] [place] [phone] Chidi Blount MD [address] [place] [phone] Scheduled Referrals Name Type Priority Associated Diagnoses Order Schedule Ambulatory referral to Physical Medicine Rehab Outpatient Referral Routine Lumbar spondylosis 1 Occurrences starting 05/12/2025 until 05/12/2026 documented as of this encounter Visit Diagnoses Diagnosis Lumbar spondylosis- Primary Lumbosacral spondylosis without myelopathy documented in this encounter Care Teams Boarder Steam Relationship Specialty Start Date End Date Tracy De Leon MD [address] [place] [phone] PCP - General Internal Medicine 07/06/24 documented as of this encounter
== END 2025-06-15 16:39 | disposition home or self-care (01) ==
LOC: HO.HPHYS 13:57
PROVIDERS: PCP Internal Medicine; Visit Provider Physician Assistant
DX: M54.16 Radiculopathy, lumbar region (principal); M47.9 Spondylosis, unspecified
CPT/HCPCS: 99204

== ENCOUNTER → 2025-06-15 13:56 | Outpatient (BNVA) | payer OTHER, SELFPAY | PROVIDERS: PCP Internal Medicine; Visit Provider Physician Assistant | DX: M54.16 Radiculopathy, lumbar region (principal); M47.9 Spondylosis, unspecified; M54.32 Sciatica, left side | CPT/HCPCS: 99202 ==